=== PATIENT | female | born 1955 | race Caucasian/White ===

== ENCOUNTER 2023-10-15 11:14 | Outpatient (CLI) | payer MEDICARE, SELFPAY ==
--- NOTE | ~2023-10-15 | CT_ITS ---
EXAMINATION: CT foot LT wo con DATE: 10/15/2023 11:32 INDICATION: Left foot pain TECHNIQUE: High resolution computed tomography (CT) of the left foot was performed without intravenou s contrast. Additional sagittal and coronal reconstructions were performed. Automated exposure contro l and iterative reconstruction technique were employed. The dose-length product was 160.74 mGy-cm. COMPARISON: None FINDINGS: Left first metatarsophalangeal arthrodesis which internally fixed with an oblique screw and a dorsal plate and screws. There is also been a prior likely shortening osteotomy at the neck of the second me tatarsal with screw fixation. Alignment appears essentially anatomic. Prominent osseous excrescence a t the anterior margin of the lateral malleolus which suggests a chronic avulsion fracture healed with mild displacement. No acute fracture. 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 Enthesopathic ossicle at the ca lcaneal insertion of the distal Achilles tendon. Small heterotopic ossicle along the deep deltoid lig ament likely sequela of chronic sprain. Soft tissues are unremarkable. No evident ankle joint effusio n. IMPRESSION: 1. Postoperative changes of a first metatarsophalangeal arthrodesis and second metatarsal neck shorte lee osteotomy. 2. Old healed avulsion fracture at the anterior margin of the lateral malleolus and tiny heterotopic ossicle at the deep deltoid ligament likely sequela of chronic sprain. No acute osseous abnormality. 3. 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 Reviewed, dictated and finalized at location A. IMPRESSION: 1. Postoperative changes of a first metatarsophalangeal arthrodesis and second metatarsal neck shortening osteotomy. 2. Old healed avulsion fracture at the anterior margin of the lateral malleolus and tiny heterotopic ossicle at the deep deltoid ligament likely sequela of ch ronic sprain. No acute osseous abnormality. 3. Mild degenerative changes including mild particular osteoarthritis in the le ft foot and ankle and enthesopathic ossification at the distal Achilles tendon.
== END 2023-10-15 11:15 ==
LOC: MICIMG 11:17
DX: M19.072 Primary osteoarthritis, left ankle and foot (principal); M79.672 Pain in left foot
CPT/HCPCS: 73700